=== PATIENT | female | born 1955 | race Caucasian/White ===

== ENCOUNTER 2018-03-03 18:16 | Outpatient (REF) | payer BC, SELFPAY ==
[2018-03-03 20:32] LABS: Anion Gap 10.7 mmol/L (3-11); BUN 9 mg/dL (7-18); CO2 27.3 mmol/L (21.0-32.0); CREATININE 0.55 mg/dL (0.55-1.02); Calcium 9.8 mg/dL (8.5-10.1); Chloride 93 mmol/L (98-107); Glucose 88 mg/dL (70-100); Potassium 3.6 mmol/L (3.5-5.1); Sodium 131 mmol/L (136-145)
== END 2018-03-03 18:36 ==
LOC: NCHCN 18:16
PROVIDERS: PCP Specialist/Technologist Athletic Trainer; Visit Provider Physician Assistant Medical
DX: I10 Essential (primary) hypertension (principal)
CPT/HCPCS: 80048

== ENCOUNTER 2018-03-19 18:26 | Outpatient (REF) | payer BC, SELFPAY ==
[2018-03-19 21:53] LABS: Anion Gap 13.8 mmol/L (3-11); BUN 18 mg/dL (7-18); CO2 26.2 mmol/L (21.0-32.0); CREATININE 0.59 mg/dL (0.55-1.02); Calcium 10.1 mg/dL (8.5-10.1); Chloride 97 mmol/L (98-107); Glucose 88 mg/dL (70-100); Potassium 4.4 mmol/L (3.5-5.1); Sodium 137 mmol/L (136-145)
== END 2018-03-19 18:46 ==
LOC: NCHCN 18:26
PROVIDERS: PCP Specialist/Technologist Athletic Trainer; Visit Provider Physician Assistant Medical
DX: I10 Essential (primary) hypertension (principal); E87.1 Hypo-osmolality and hyponatremia
CPT/HCPCS: 80048

== ENCOUNTER 2018-09-08 10:47 | Outpatient (REF) | payer BC, SELFPAY ==
[2018-09-08 20:42] LABS: ALT 24 U/L (12-78); AST 28 U/L (15-37); Albumin 4.4 g/dL (3.4-5.0); Alkaline Phosphatase 69 U/L (46-116); Anion Gap 13.1 mmol/L (3-11); BUN 23 mg/dL (7-18); Bilirubin, Total 0.4 mg/dL (0.2-1.0); CO2 27.9 mmol/L (21.0-32.0); CREATININE 0.91 mg/dL (0.55-1.02); Calcium 9.8 mg/dL (8.5-10.1); Chloride 98 mmol/L (98-107); Cholesterol 268 mg/dL (50-200); Glucose 130 mg/dL (70-100); LDL CHOLESTEROL 73 mg/dL (<100); Potassium 3.9 mmol/L (3.5-5.1); Sodium 139 mmol/L (136-145); Total Protein 8.1 g/dL (6.4-8.2); Triglyceride 37 mg/dL (30-150)
[2018-09-08 21:25] LABS: HDL Cholesterol 165 mg/dL (40-60)
== END 2018-09-08 11:07 ==
LOC: NCHCN 10:47
PROVIDERS: PCP Specialist/Technologist Athletic Trainer; Visit Provider Physician Assistant Medical
DX: Z00.00 Encounter for general adult medical examination without abnormal findings (principal); Z13.220 Encounter for screening for lipoid disorders; Z13.228 Encounter for screening for other metabolic disorders
CPT/HCPCS: 80053; 80061; 83721

== ENCOUNTER 2019-11-04 18:19 | Outpatient (REF) | payer OTHER, SELFPAY ==
[2019-11-04 20:15] LABS: Anion Gap 8.1 mmol/L (3-11); BUN 14 mg/dL (7-18); CO2 27.9 mmol/L (21.0-32.0); CREATININE 0.71 mg/dL (0.55-1.02); Calcium 9.5 mg/dL (8.5-10.1); Chloride 98 mmol/L (98-107); Glucose 86 mg/dL (74-106); Sodium 134 mmol/L (136-145)
[2019-11-04 20:19] LABS: Hemoglobin A1C 5.2 % (3.8-5.6)
== END 2019-11-04 18:39 ==
LOC: NCHCN 18:19
PROVIDERS: PCP Specialist/Technologist Athletic Trainer; Visit Provider Physician Assistant Medical
DX: R73.09 Other abnormal glucose (principal); I10 Essential (primary) hypertension
CPT/HCPCS: 80048; 83036

== ENCOUNTER 2020-11-07 20:29 | Outpatient (REF) | payer OTHER, SELFPAY ==
--- NOTE | 2020-11-07 17:30 | PAPFT_PTH ---
PATIENT: Janet Perez LOC: [facility]#:[id number] AGE/SX: 65/F ROOM: RE11/07/[address]: Annie Arrieta : 1955 BED: DIS: 11/07/2020 SPEC #: [id number] RECD: 11/08/20 12:58 STATUS: LIBBY REQ #: [id number] BARBARA: 11/07/20 17:[address]: Annie Arrieta DEPT: [facility] Cytology RECD BY: Tania Chauhan ENTERED: 11/08/20 12:59 SP TYPE: PAPFT OTHR DR: Brett Martinez Tissues: 1 - CX/ENDOCX FOR PAP SMEARS Procedures: PAP THIN PREP/[facility] Screening HPV DNA PROBE Comments: [id number]
[2020-11-07 20:41] LABS: ALT 28 U/L (14-59); AST 26 U/L (15-37); Albumin 4.1 g/dL (3.4-5.0); Alkaline Phosphatase 85 U/L (46-116); Anion Gap 9.3 mmol/L (3-11); BUN 17 mg/dL (7-18); Bilirubin, Total 0.4 mg/dL (0.2-1.0); CO2 30.7 mmol/L (21.0-32.0); CREATININE 0.8 mg/dL (0.55-1.02); Calcium 9.4 mg/dL (8.5-10.1); Calculated LDL 93 mg/dL (<100); Chloride 95 mmol/L (98-107); Cholesterol 243 mg/dL (<200); Glucose 86 mg/dL (74-106); HDL Cholesterol 140 mg/dL (40-60); Potassium 3.2 mmol/L (3.5-5.1); Sodium 135 mmol/L (136-145); Total Protein 7.4 g/dL (6.4-8.2); Triglyceride 52 mg/dL (<150)
== END 2020-11-07 20:30 | disposition home or self-care (01) ==
LOC: NCHCN 20:29
PROVIDERS: PCP Specialist/Technologist Athletic Trainer; Visit Provider Physician Assistant Medical
DX: Z12.4 Encounter for screening for malignant neoplasm of cervix (principal); Z11.51 Encounter for screening for human papillomavirus (HPV); R73.03 Prediabetes; I10 Essential (primary) hypertension; Z01.419 Encounter for gynecological examination (general) (routine) without abnormal findings
CPT/HCPCS: 80053; 80061; 88142; 83036; 87624

== ENCOUNTER 2020-12-17 14:55 | Outpatient (REF) | payer OTHER, SELFPAY ==
[2020-12-17 20:58] LABS: Anion Gap 11.9 mmol/L (3-11); BUN 17 mg/dL (7-18); CO2 26.1 mmol/L (21.0-32.0); CREATININE 0.7 mg/dL (0.55-1.02); Calcium 9.8 mg/dL (8.5-10.1); Chloride 100 mmol/L (98-107); Glucose 84 mg/dL (74-106); Potassium 4.2 mmol/L (3.5-5.1); Sodium 138 mmol/L (136-145)
== END 2020-12-17 14:56 | disposition home or self-care (01) ==
LOC: NCHCN 14:55
PROVIDERS: PCP Specialist/Technologist Athletic Trainer; Visit Provider Physician Assistant Medical
DX: I10 Essential (primary) hypertension (principal)
CPT/HCPCS: 80048

== ENCOUNTER 2021-11-13 17:44 | Outpatient (REF) | payer MEDICARE, SELFPAY ==
[2021-11-13 20:22] LABS: BUN 17 mg/dL (7-18); CREATININE 0.7 mg/dL (0.55-1.02); Calcium 9.4 mg/dL (8.5-10.1); Chloride 95 mmol/L (98-107); Glucose 91 mg/dL (74-106); Potassium 3.5 mmol/L (3.5-5.1); Sodium 134 mmol/L (136-145)
== END 2021-11-13 17:45 | disposition home or self-care (01) ==
LOC: NCHCN 17:44
PROVIDERS: PCP Specialist/Technologist Athletic Trainer; Visit Provider Physician Assistant Medical
DX: I10 Essential (primary) hypertension (principal)
CPT/HCPCS: 80048

== ENCOUNTER 2022-12-17 12:58 | Outpatient (REF) | payer MEDICARE, SELFPAY ==
[2022-12-17 17:03] LABS: Anion Gap 10.4 mmol/L (3-11); BUN 17 mg/dL (7-18); CO2 27.6 mmol/L (21.0-32.0); CREATININE 0.6 mg/dL (0.55-1.02); Calcium 9.7 mg/dL (8.5-10.1); Chloride 97 mmol/L (98-107); Glucose 98 mg/dL (74-106); Potassium 4.1 mmol/L (3.5-5.1); Sodium 135 mmol/L (136-145)
== END 2022-12-17 12:59 | disposition home or self-care (01) ==
LOC: NCHCN 12:58
PROVIDERS: PCP Specialist/Technologist Athletic Trainer; Visit Provider Physician Assistant Medical
DX: I10 Essential (primary) hypertension (principal)
CPT/HCPCS: 80048

== ENCOUNTER 2023-12-23 18:46 | Outpatient (REF) | payer MEDICARE, SELFPAY ==
[2023-12-23 20:14] LABS: Anion Gap 9.7 mmol/L (3-11); BUN 16 mg/dL (7-18); CO2 29.3 mmol/L (21.0-32.0); CREATININE 0.9 mg/dL (0.55-1.02); Calcium 10.1 mg/dL (8.5-10.1); Calculated LDL 108 mg/dL (<100); Chloride 92 mmol/L (98-107); Cholesterol 241 mg/dL (<200); Estimated GFR 68.77 (mL/min/1.73m2); Glucose 101 mg/dL (74-106); HDL Cholesterol 123 mg/dL (40-60); Potassium 3.3 mmol/L (3.5-5.1); Sodium 131 mmol/L (136-145); Triglyceride 51 mg/dL (<150)
== END 2023-12-23 18:47 | disposition home or self-care (01) ==
LOC: NCHCN 18:46
PROVIDERS: PCP Specialist/Technologist Athletic Trainer; Visit Provider Physician Assistant Medical
DX: I10 Essential (primary) hypertension (principal); E78.5 Hyperlipidemia, unspecified
CPT/HCPCS: 80048; 80061

== ENCOUNTER 2024-02-23 18:27 | Outpatient (REF) | payer MEDICARE, SELFPAY ==
[2024-02-23 19:58] LABS: ALT 24 U/L (14-59); AST 26 U/L (15-37); Albumin 4.2 g/dL (3.4-5.0); Alkaline Phosphatase 54 U/L (46-116); Anion Gap 4.6 mmol/L (3-11); BUN 13 mg/dL (7-18); Bilirubin, Total 0.51 mg/dL (0.2-1.0); CO2 32.4 mmol/L (21.0-32.0); CREATININE 0.8 mg/dL (0.55-1.02); Calcium 10.5 mg/dL (8.5-10.1); Chloride 100 mmol/L (98-107); Cholesterol 175 mg/dL (<200); Estimated GFR 79.22 (mL/min/1.73m2); Glucose 107 mg/dL (74-106); HDL Cholesterol 136 mg/dL (40-60); Sodium 137 mmol/L (136-145); Total Protein 7.8 g/dL (6.4-8.2)
[2024-02-23 20:05] LABS: Triglyceride <25 mg/dL (<150)
[2024-02-23 20:22] LABS: LDL CHOLESTEROL 31 mg/dL (<100)
== END 2024-02-23 18:28 | disposition home or self-care (01) ==
LOC: NCHCN 18:27
PROVIDERS: PCP Specialist/Technologist Athletic Trainer; Visit Provider Physician Assistant Medical
DX: E78.5 Hyperlipidemia, unspecified (principal)
CPT/HCPCS: 80053; 80061; 83721

== ENCOUNTER 2024-12-26 20:19 | Outpatient (REF) | payer MEDICARE, SELFPAY ==
[2024-12-26 20:03] LABS: Hemoglobin A1C 5.1 % (<5.7)
[2024-12-26 20:24] LABS: ALT 25 U/L (14-59); AST 25 U/L (15-37); Albumin 4.2 g/dL (3.4-5.0); Alkaline Phosphatase 53 U/L (46-116); Anion Gap 10.9 mmol/L (3-11); BUN 17 mg/dL (7-18); Bilirubin, Total 0.4 mg/dL (0.2-1.0); CO2 25.1 mmol/L (21.0-32.0); Calcium 9.2 mg/dL (8.5-10.1); Calculated LDL 77 mg/dL (<100); Chloride 99 mmol/L (98-107); Cholesterol 214 mg/dL (<200); Estimated GFR 95.90 (mL/min/1.73m2); Glucose 93 mg/dL (74-106); HDL Cholesterol 127 mg/dL (>or=50); Potassium 4.3 mmol/L (3.5-5.1); Sodium 135 mmol/L (136-145); Total Protein 7.6 g/dL (6.4-8.2); Triglyceride 54 mg/dL (<150); Vitamin D 25 Total 47 ng/mL (30-100)
== END 2024-12-26 20:20 | disposition home or self-care (01) ==
LOC: NCHCN 20:19
PROVIDERS: PCP Specialist/Technologist Athletic Trainer; Visit Provider Physician Assistant Medical
DX: I10 Essential (primary) hypertension (principal); Z13.1 Encounter for screening for diabetes mellitus; M81.0 Age-related osteoporosis without current pathological fracture; E78.5 Hyperlipidemia, unspecified
CPT/HCPCS: 80053; 80061; 82306; 83036